=== PATIENT | male | born 1975 ===

== ENCOUNTER 2018-10-17 18:45 | Emergency (ER) | payer OTHER ==
[2018-10-17] MEDS ORDERED: NS 0.9% 1000 ML** 1,000 ML IV ONE (18:55)
[2018-10-17 19:22] LABS: ABS Basophils 0.1 10^3/ul (0-0.2); ABS Eosinophils 0.3 10^3/ul (0-0.6); ABS Lymphocytes 2.3 10^3/ul (1.0-4.8); ABS Monocytes 0.6 10^3/ul (0-0.8); ABS Neutrophils 4.1 10^3/ul (1.5-7.7); ABS Nucleated RBC 0 10^3/ul; Eosinophil % 3.6 %; Hematocrit 42 % (42-52); Hemoglobin 13.9 g/dl (14.0-18.0); Lymphocyte % 31.6 %; Mean Corpuscular HGB Conc 34 g/dl (31-36); Mean Corpuscular Hemoglobin 30 pg (27-31); Mean Corpuscular Volume 90 fL (80-94); Nucleated Red Blood Cells % 0; Platelet Count 267 10^3/ul (150-450); Red Cell Distribution Width 13 % (10.5-15); White Blood Count 7.4 10^3/ul (3.5-10.8)
[2018-10-17 19:28] LABS: INR 0.95 (0.77-1.02)
[2018-10-17 19:39] LABS: Albumin 4.5 g/dL (3.2-5.2); Albumin/Globulin Ratio 1.9 (1-3); BUN/Creatinine Ratio 16.8 (8-20); Calcium 9.8 mg/dL (8.6-10.3); EGFR African American 92.2 (>60); EGFR Non-African American 76.2 (>60); Globulin 2.4 g/dL (2-4); Potassium 3.7 mmol/L (3.5-5.0); Total Bilirubin 0.5 mg/dL (0.2-1.0); Total Protein 6.9 g/dL (6.4-8.9)
--- NOTE | 2018-10-17 19:56 | ED ---
Syncope/Near Syncope - HPI Summary HPI Summary: Patient complains of syncopal episodes 2. Patient complains of lightheadedness , chest tightness, clamminess prior to first episode of syncope while at work today. EMS was called, patient had second episode of syncope while on the ambulance with heart rate decreasing to 30. BGL per EMS was 87. Patient alert and oriented currently, denies fever, cough, sore throat, active CP, SOB, N/V/D , abdominal pain, change in urine, change in BM. Patient plays basketball 3 times a week, denies any recent CP, SOB with exertion. Denies postictal phase after syncope. Denies prior episodes of syncope, prior history of cardiac disease, seizures. Denies medical history. - History Of Current Complaint Chief Complaint: EDSyncope Time Seen by Provider: 10/17/18 18:54 Hx Obtained From: Patient Onset/Duration: Sudden Onset Timing: Intermittent Episode Lasting Context: Witnessed Activity At Onset: Other Associated Head Trauma: No Aggravating Factor(s): Nothing Alleviating Factor(s): Spontaneous Resolution Associated Signs And Symptoms: Chest Pain, Lightheadedness - Allergies/Home Medications Allergies/Adverse Reactions: Allergies Allergy/AdvReac Type Severity Reaction Status Date / Time No Known Allergies Allergy Verified 10/17/18 18:56 PMH/Surg Hx/FS Hx/Imm Hx Endocrine/Hematology History: Denies: Hx Anticoagulant Therapy Cardiovascular History: Denies: Hx Cardiac Arrest History: Denies: Hx Dialysis Sensory History: Denies: Hx Eye Prosthesis Opthamlomology History: Denies: Hx Legally Blind EENT History: Denies: Hx Deafness Neurological History: Denies: Hx Dementia Psychiatric History: Denies: Hx Autism Infectious Disease History: No Infectious Disease History: Denies: Traveled Outside the [place] in Last 30 Days - Social History Alcohol Use: Occasionally Substance Use Type: Reports: Marijuana Smoking Status (MU): Former Smoker Review of Systems Positive: Skin Diaphoresis Eyes: Negative ENT: Negative Positive: Chest Pain Respiratory: Negative Gastrointestinal: Negative Genitourinary: Negative Musculoskeletal: Negative Skin: Negative Positive: Syncope Psychological: Normal All Other Systems Reviewed And Are Negative: Yes Physical Exam - Summary Physical Exam Summary: RRR. Lung sounds clear to auscultation bilaterally. Abdomen soft nontender. Neuro exam normal. Triage Information Reviewed: Yes Vital Signs On Initial Exam: Initial Vitals Temp Pulse Resp BP Pulse Ox 97.8 F 64 14 113/56 98 10/17/18 18:47 10/17/18 18:47 10/17/18 18:47 10/17/18 18:47 10/17/18 18:47 Vital Signs Reviewed: Yes Appearance: Positive: Well-Appearing Skin: Positive: Warm Head/Face: Positive: Normal Head/Face Inspection Eyes: Positive: Normal Neck: Positive: Supple Respiratory/Lung Sounds: Positive: Clear to Auscultation Cardiovascular: Positive: Normal Abdomen Description: Positive: Nontender Musculoskeletal: Positive: Normal Neurological: Positive: Normal Psychiatric: Positive: Normal AVPU Assessment: Alert - [place] Coma Scale Best Eye Response: 4 - Spontaneous Best Motor Response: 6 - Obeys Commands Best Verbal Response: 5 - Oriented Coma Scale Total: 15 Diagnostics - Vital Signs Vital Signs Temp Pulse Resp BP Pulse Ox 10/17/18 19:12 66 154/83 10/17/18 18:58 98 10/17/18 18:51 65 16 128/69 98 10/17/18 18:50 62 20 98 10/17/18 18:47 97.8 F 64 14 113/56 98 - Laboratory Lab Results: Lab Results 10/17/18 10/17/18 10/17/18 Range/Units 19:16 19:16 19:16 WBC 7.4 (3.5-10.8) 10^3/ul RBC 4.60 (4.00-5.40) 10^6/ul Hgb 13.9 L (14.0-18.0) g/dl Hct 42 (42-52) % MCV 90 (80-94) fL MCH 30 (27-31) pg MCHC 34 (31-36) g/dl RDW 13 (10.5-15) % Plt Count 267 (150-450) 10^3/ul MPV 8.0 (7.4-10.4) fL Neut % (Auto) 56.0 % Lymph % (Auto) 31.6 % [place] % (Auto) 7.8 % Eos % (Auto) 3.6 % Baso % (Auto) 1.0 % Absolute Neuts (auto) 4.1 (1.5-7.7) 10^3/ul Absolute Lymphs (auto) 2.3 (1.0-4.8) 10^3/ul Absolute Monos (auto) 0.6 (0-0.8) 10^3/ul Absolute Eos (auto) 0.3 (0-0.6) 10^3/ul Absolute Basos (auto) 0.1 (0-0.2) 10^3/ul Absolute Nucleated RBC 0 10^3/ul Nucleated RBC % 0 INR (Anticoag Therapy) (0.77-1.02) Sodium 136 (135-145) mmol/L Potassium 3.7 (3.5-5.0) mmol/L Chloride 100 L (101-111) mmol/L Carbon Dioxide 30 (22-32) mmol/L Anion Gap 6 (2-11) mmol/L BUN 18 (6-24) mg/dL Creatinine 1.07 (0.67-1.17) mg/dL Est GFR ( Amer) 92.2 (>60) Est GFR (Non-Af Amer) 76.2 (>60) BUN/Creatinine Ratio 16.8 (8-20) Glucose 126 H (70-100) mg/dL Lactic Acid 1.8 (0.5-2.0) mmol/L Calcium 9.8 (8.6-10.3) mg/dL Magnesium 2.0 (1.9-2.7) mg/dL Total Bilirubin 0.50 (0.2-1.0) mg/dL AST 21 (13-39) U/L ALT 30 (7-52) U/L Alkaline Phosphatase 50 (34-104) U/L Troponin I 0.00 (<0.04) ng/mL B-Natriuretic Peptide (<=100) pg/mL Total Protein 6.9 (6.4-8.9) g/dL Albumin 4.5 (3.2-5.2) g/dL Globulin 2.4 (2-4) g/dL Albumin/Globulin Ratio 1.9 (1-3) TSH Pending 10/17/18 10/17/18 Range/Units 19:16 19:16 WBC (3.5-10.8) 10^3/ul RBC (4.00-5.40) 10^6/ul Hgb (14.0-18.0) g/dl Hct (42-52) % MCV (80-94) fL MCH (27-31) pg MCHC (31-36) g/dl RDW (10.5-15) % Plt Count (150-450) 10^3/ul MPV (7.4-10.4) fL Neut % (Auto) % Lymph % (Auto) % [place] % (Auto) % Eos % (Auto) % Baso % (Auto) % Absolute Neuts (auto) (1.5-7.7) 10^3/ul Absolute Lymphs (auto) (1.0-4.8) 10^3/ul Absolute Monos (auto) (0-0.8) 10^3/ul Absolute Eos (auto) (0-0.6) 10^3/ul Absolute Basos (auto) (0-0.2) 10^3/ul Absolute Nucleated RBC 10^3/ul Nucleated RBC % INR (Anticoag Therapy) 0.95 (0.77-1.02) Sodium (135-145) mmol/L Potassium (3.5-5.0) mmol/L Chloride (101-111) mmol/L Carbon Dioxide (22-32) mmol/L Anion Gap (2-11) mmol/L BUN (6-24) mg/dL Creatinine (0.67-1.17) mg/dL Est GFR ( Amer) (>60) Est GFR (Non-Af Amer) (>60) BUN/Creatinine Ratio (8-20) Glucose (70-100) mg/dL Lactic Acid (0.5-2.0) mmol/L Calcium (8.6-10.3) mg/dL Magnesium (1.9-2.7) mg/dL Total Bilirubin (0.2-1.0) mg/dL AST (13-39) U/L ALT (7-52) U/L Alkaline Phosphatase (34-104) U/L Troponin I (<0.04) ng/mL B-Natriuretic Peptide 5 (<=100) pg/mL Total Protein (6.4-8.9) g/dL Albumin (3.2-5.2) g/dL Globulin (2-4) g/dL Albumin/Globulin Ratio (1-3) TSH Result Diagrams: 10/17/18 19:16 10/17/18 19:16 Lab Statement: Any lab studies that have been ordered have been reviewed, and results considered in the medical decision making process. Course/Dx Course Of Treatment: Patient complains of syncopal episodes 2. Patient complains of lightheadedness, chest tightness, clamminess prior to first episode of syncope while at work today. EMS was called, patient had second episode of syncope while on the ambulance with heart rate decreasing to 30. BGL per EMS was 87. Patient alert and oriented currently, denies fever, cough, sore throat, active CP, SOB, N/V/D, abdominal pain, change in urine, change in BM. Patient plays basketball 3 times a week, denies any recent CP, SOB with exertion. Denies postictal phase after syncope. Denies prior episodes of syncope, prior history of cardiac disease, seizures. Denies medical history. Physical exam:RRR. Lung sounds clear to auscultation bilaterally. Abdomen soft nontender. Neuro exam normal. Vital signs within normal limits. Labs unremarkable. EKG sinus bradycardia rate of 54. Chest x-ray unremarkable. Patient athletic, plays basketball 3 times a week without symptoms. [place] syncope risk score 0. Recommend patient no athletics until he can follow up with cardiology for further evaluation. - Diagnoses Provider Diagnoses: Syncope Discharge - Sign-Out/Discharge Documenting (check all that apply): Patient Departure Patient Received Moderate/Deep Sedation with Procedure: No - Discharge Plan Condition: Stable Disposition: HOME Patient Education Materials: Syncope (ED) Referrals: No Primary Care Phys,NOPCP [Primary Care Provider] - Parish Coronel MD [Medical Doctor] - Additional Instructions: No athletic activity until follow up with cardiology Dr Coronel for further evaluation. Return to the ED for any new or worsening symptoms. - Billing Disposition and Condition Condition: STABLE Disposition: Home
[2018-10-17 20:15] LABS: TSH (Thyroid Stimulating Horm) 4.46 mcIU/mL (0.34-5.60)
[2018-10-17 21:28] VITALS: BP 121/66
== END 2018-10-17 21:35 | disposition home or self-care (01) ==
LOC: ED 18:45
DX: R55 Syncope and collapse (principal); R07.89 Other chest pain; R42 Dizziness and giddiness; R61 Generalized hyperhidrosis; Z87.891 Personal history of nicotine dependence
CPT/HCPCS: 36415; 71045; 80053; 83605; 83735; 83880; 84443; 84484; 85025; 85610; 93005; 96360; 99284